=== PATIENT | male | born 1980 | race African-American/Black ===

== ENCOUNTER 2018-08-31 17:44 | Emergency (ER) | payer OTHER ==
[~2018-08-31] VITALS: Ht 170.2 cm; Wt 74.8 kg
[~2018-08-31 17:44] MED LIST: AMOXICILLIN875 MG PO; BACTRIM DS TAB1 EACH PO; NOHOMEMEDICATIONS; PROMETHAZINE-C120 ML PO
[2018-08-31] MEDS ORDERED: MUCINEX DM ER1 EACH PO (18:47)
[2018-08-31] MEDS ORDERED: FLONASE 0.05%50 MCG NASAL (18:47)
[2018-08-31 18:52] VITALS: BP 123/85
== END 2018-08-31 18:53 | disposition home or self-care (01) ==
LOC: ER 17:44
DX: J06.9 Acute upper respiratory infection, unspecified (principal); F17.200 Nicotine dependence, unspecified, uncomplicated